=== PATIENT | female | born 1960 | race Two or more races ===

== ENCOUNTER 2017-05-01 10:03 | Emergency (ER) | payer OTHER ==
[2017-05-01 10:18] VITALS: BP 101/67; PULSE 56; TEMP 97.4; BMI 38.7
--- NOTE | 2017-05-01 10:18 | PDOC ---
History of Present Illness - General History Source: Patient Exam Limitations: No Limitations - History of Present Illness Initial Comments: 05/01/17 10:38 The patient is a 57-year-old female with a significant past medical history of diabetes, HTN, and HLD, who presents to the emergency department with dizziness and headache since 8:30am today. She states her headache is located at the frontal region. She also reports of near syncope and fall after the dizziness started. She denies any head trauma or LOC. As per brother, the patient took one sublingual nitro after her headache started. She reports associated nausea and one episode of non-bloody vomiting. She denies any sick contacts. She states she recently traveled back from [place] 2 days ago. The patient denies chest pain or shortness of breath. The patient denies fever, chills, diarrhea and constipation. The patient denies dysuria, frequency, urgency and hematuria. Allergies: NKDA Past Surgical History: None reported Social History: No toxic habits reported PCP: Dr. Rohit Borrego <Ade Callahan - Last Filed: 05/01/17 10:38> <Ara Titus - Last Filed: 05/01/17 13:43> - General Chief Complaint: Headache Stated Complaint: DIZZINESS Time Seen by Provider: 05/01/17 10:18 Past History <Ade Callahan - Last Filed: 05/01/17 10:38> - Suicide/Smoking/Psychosocial Hx Smoking History: Never smoked Information on smoking cessation initiated: No Hx Alcohol Use: No Drug/Substance Use Hx: No <Ara Titus - Last Filed: 05/01/17 13:43> - Past Medical History Allergies/Adverse Reactions: Allergies Allergy/AdvReac Type Severity Reaction Status Date / Time No Known Allergies Allergy Verified 05/01/17 10:30 Home Medications: Ambulatory Orders Atorvastatin Ca [Lipitor] 10 mg PO HS 05/01/17 Bystolic 5 mg PO DAILY 05/01/17 Enalapril Maleate 2.5 mg PO DAILY 05/01/17 Ergocalciferol (Vitamin D2) [Vitamin D2] 50,000 unit PO WEEKLY 05/01/17 Furosemide 20 mg PO DAILY 05/01/17 Hydroxyzine HCl 10 mg PO TID 05/01/17 Meclizine HCl [Antivert -] 25 mg PO QID PRN #28 tablet 05/01/17 Metformin HCl [Glucophage] 1,000 mg PO BID 05/01/17 Omeprazole 40 mg PO BID 05/01/17 Review of Systems - Review of Systems Able to Perform ROS?: Yes Comments:: 05/01/17 10:39 GENERAL/CONSTITUTIONAL: No fever or chills. No weakness. HEAD, EYES, EARS, NOSE AND THROAT: No change in vision. No ear pain or discharge. No sore throat. CARDIOVASCULAR: No chest pain or shortness of breath. RESPIRATORY: No cough, wheezing, or hemoptysis. GASTROINTESTINAL: (+) Nausea. (+) Vomiting. No diarrhea or constipation. GENITOURINARY: No dysuria, frequency, or change in urination. MUSCULOSKELETAL: No joint or muscle swelling or pain. No neck or back pain. SKIN: No rash NEUROLOGIC: (+) Headache. (+) Dizziness. No vertigo, loss of consciousness, or change in strength/sensation. ENDOCRINE: No increased thirst. No abnormal weight change. HEMATOLOGIC/LYMPHATIC: No anemia, easy bleeding, or history of blood clots. ALLERGIC/IMMUNOLOGIC: No hives or skin allergy. <Ade Callahan - Last Filed: 05/01/17 10:38> *Physical Exam - Vital Signs Last Vital Signs Temp Pulse Resp BP Pulse Ox 97.4 F L 56 L 16 101/67 100 05/01/17 10:14 05/01/17 10:14 05/01/17 10:14 05/01/17 10:14 05/01/17 10:14 - Physical Exam Comments: 05/01/17 10:39 GENERAL: Awake, alert, and fully oriented, in no acute distress HEAD: No signs of trauma EYES: PERRLA, EOMI, sclera anicteric, conjunctiva clear ENT: Auricles normal inspection, hearing grossly normal, nares patent, oropharynx clear without exudates. Moist mucosa NECK: Normal ROM, supple, no lymphadenopathy, JVD, or masses LUNGS: Breath sounds equal, clear to auscultation bilaterally. No wheezes, and no crackles HEART: Regular rate and rhythm, normal S1 and S2, no murmurs, rubs or gallops ABDOMEN: Soft, nontender, normoactive bowel sounds. No guarding, no rebound. No masses EXTREMITIES: Normal range of motion, no edema. No clubbing or cyanosis. No cords, erythema, or tenderness NEUROLOGICAL: Cranial nerves II through XII grossly intact. 5/5 strength of bilateral UE and LE. Normal speech. SKIN: Warm, Dry, normal turgor, no rashes or lesions noted. <Ade Callahan - Last Filed: 05/01/17 10:38> - Vital Signs Last Vital Signs Temp Pulse Resp BP Pulse Ox 97.4 F L 56 L 16 101/67 100 05/01/17 10:14 05/01/17 10:14 05/01/17 10:14 05/01/17 10:14 05/01/17 10:14 <Ara Titus - Last Filed: 05/01/17 13:43> ED Treatment Course - Medications Given in the ED: ED Medications Discontinued Medications Generic Name Dose Route Start Last Admin Trade Name Graemeq PRN Reason Stop Dose Admin Acetaminophen 1,000 mg 05/01/17 10:27 05/01/17 10:33 Ofirmev Injection - IVPB 05/01/17 10:28 1,000 mg ONCE ONE Administration Meclizine HCl 25 mg 05/01/17 10:28 05/01/17 10:34 Antivert - PO 05/01/17 10:29 25 mg ONCE ONE Administration <Ade Callahan - Last Filed: 05/01/17 10:38> - LABORATORY CBC & Chemistry Diagram: 05/01/17 10:30 05/01/17 10:30 <Ara Titus - Last Filed: 05/01/17 13:43> Medical Decision Making - Medical Decision Making 05/01/17 13:25 Pt presents to the ED with an episode of vertigo that occurred when moving from sitting to standing. Patient became acutely vertiginous, then fell without LOC. Her then gave her a nitroglycerin. Had headache that began after taking her 's nitroglycerin pill and now is resolved. CT head performed to check for intracranial pathology and is negative. Vertigo greatly improved with meclizine. Labs are within normal limits. Will discharge home with follow up with her PMD, Dr. Rohit Willams. 05/01/17 13:42 <Ara Titus - Last Filed: 05/01/17 13:43> *DC/Admit/Observation/Transfer - Attestations Scribe Attestion: 05/01/17 10:39 Documentation prepared by Ade Callahan, acting as biomedical service engineer for Ara Titus MD, MD/DO. <Ade Callahan - Last Filed: 05/01/17 10:38> - Discharge Dispostion Admit: No <Ara Titus - Last Filed: 05/01/17 13:43> Diagnosis at time of Disposition: Vertigo - Discharge Dispostion Disposition: HOME Condition at time of disposition: Good - Prescriptions Prescriptions: Meclizine HCl [Antivert -] 25 mg PO QID PRN #28 tablet PRN Reason: Vertigo - Referrals Referrals: Rohit Borrego MD [Primary Care Provider] - - Patient Instructions Printed Discharge Instructions: DI for Vertigo Additional Instructions: Return to the ED for worsening dizziness, difficultly walking, severe headache, passing out, chest pain or shortness of breath, other new or worsening symptoms. Follow up with Dr. Willams this week.
[2017-05-01] MEDS ORDERED: ACETAMINOPHEN 1000 MG/100 ML VIAL (NON FORMULARY) IVPB ONE (10:27)
[2017-05-01] MEDS ORDERED: MECLIZINE HCL 25 MG TABLET (FP) PO ONE (10:28)
[2017-05-01 10:58] LABS: HEMATOCRIT 36.6 % (32.4-45.2); HEMOGLOBIN 11.9 GM/dL (10.7-15.3); LYMPH % 29.2 % (8-40); MCH 29.3 pg (25.7-33.7); MCHC 32.5 g/dl (32.0-36.0); MEAN CELL VOLUME 90.4 fl (80-96); MEAN PLT VOLUME 7.5 fl (7.5-11.1); MONO % 5.4 % (3.8-10.2); NEUT % 61.4 % (42.8-82.8); PLATELET COUNT 274 K/MM3 (134-434); RBC 4.05 M/mm3 (3.60-5.2); RDW 14.1 % (11.6-15.6); WHITE BLOOD COUNT 8.7 K/mm3 (4.0-10.0)
[2017-05-01 11:39] LABS: ALBUMIN 3.4 g/dl (3.4-5.0); ANION GAP 7 (8-16); BILIRUBIN,TOTAL 0.5 mg/dL (0.2-1.0); BLOOD UREA NITROGEN 16 mg/dL (7-18); CALCIUM 8.6 mg/dL (8.5-10.1); CHLORIDE 100 mmol/L (98-107); CO2 28 mmol/L (21-32); CREATININE 0.8 mg/dL (0.55-1.02); GLUCOSE,RANDOM 131 mg/dL (74-106); POTASSIUM 4.1 mmol/L (3.5-5.1); SGOT/AST 17 U/L (15-37); SGPT/ALT 26 U/L (12-78); SODIUM 135 mmol/L (136-145); TOT PROT 7.7 g/dl (6.4-8.2)
[2017-05-01 11:42] LABS: ALK PHOS 60 U/L (45-117)
--- NOTE | 2017-05-03 13:23 | EKG ---
Test Reason : Blood Pressure : / mmHG Vent. Rate : 053 BPM Atrial Rate : 053 BPM P-R Int : 126 ms QRS Dur : 078 ms QT Int : 464 ms P-R-T Axes : 017 007 016 degrees QTc Int : 435 ms POOR DATA QUALITY, INTERPRETATION MAY BE ADVERSELY AFFECTED SINUS BRADYCARDIA MINIMAL VOLTAGE CRITERIA FOR LVH, MAY BE NORMAL VARIANT BORDERLINE ECG WHEN COMPARED WITH ECG OF 16-JUN-2005 09:04, T WAVE INVERSION NOW EVIDENT IN ANTERIOR LEADS Confirmed by ALEXA BURCIAGA MD ([id number]) on 05/03/2017 1:22:52 PM Referred By: Confirmed By:ALEXA BURCIAGA MD
== END 2017-05-01 14:01 | disposition home or self-care (01) ==
LOC: JER 10:03
PROC: 3E033NZ Introduction of Analgesics, Hypnotics, Sedatives into Peripheral Vein, Percutaneous Approach (ICD-10-PCS; principal; 2017-05-01)
DX: R42 Dizziness and giddiness (principal); I10 Essential (primary) hypertension; E11.9 Type 2 diabetes mellitus without complications; Z79.84 Long term (current) use of oral hypoglycemic drugs; E78.00 Pure hypercholesterolemia, unspecified
CPT/HCPCS: 36415; 70450-TC; 71045-TC; 80053; 82550; 82553; 84484; 85025; 93005; 93010; 96374; 99282-25

== ENCOUNTER 2018-05-15 06:55 | Inpatient (IN) | payer OTHER ==
[2018-05-14 17:13] VITALS: BMI 43.2
[2018-05-15] MEDS ORDERED: fentaNYL CITRATE 250 MCG/5 ML VIAL ONE (07:10)
[2018-05-15] MEDS ORDERED: PROPOFOL 20 ML ONE (07:11)
[2018-05-15] MEDS ORDERED: DEXAMETHASONE SOD PHOSPHATE 4 MG/1 ML VIAL ONE (07:11)
[2018-05-15] MEDS ORDERED: ROCURONIUM BROMIDE 50 MG/5 ML VIAL ONE (07:11)
[2018-05-15] MEDS ORDERED: LIDOCAINE HCL/PF 2% SDV 5ML VIAL ONE (07:11)
[2018-05-15] MEDS ORDERED: PNEUMOC 13-VAL CONJ-DIP CRM/PF 0.5 ML DISP.SYRIN IM ONE (07:44)
[2018-05-15] MEDS ORDERED: MIDAZOLAM HCL 2 MG/2 ML SINGLE DOSE VIAL ONE ×2 (09:07)
--- NOTE | 2018-05-15 09:24 | HP ---
Admitting History and Physical - Admission Chief Complaint: Morbid obesity History Source: Patient Limitations to Obtaining History: No Limitations - Past Medical History Cardiovascular: Yes: HTN, Hyperlipdemia Endocrine: Yes: Diabetes Mellitus - Past Surgical History Past Surgical History: Yes: Appendectomy - Smoking History Smoking history: Never smoked - Alcohol/Substance Use Hx Alcohol Use: No Home Medications - Allergies Allergies/Adverse Reactions: Allergies Allergy/AdvReac Type Severity Reaction Status Date / Time amoxicillin [From Augmentin] Allergy "vomiting" Verified 05/15/18 07:23 ciprofloxacin Allergy "itchy" Verified 05/15/18 07:23 clavulanic acid Allergy "vomiting" Verified 05/15/18 07:23 [From Augmentin] pineapple Allergy "burning Verified 05/15/18 07:23 in stomach" - Home Medications Home Medications: Ambulatory Orders Atorvastatin Ca [Lipitor] 40 mg PO HS 05/01/17 Metformin HCl [Glucophage] 1,000 mg PO BID 05/01/17 RX: Furosemide 20 mg PO DAILY 05/01/17 RX: Omeprazole 40 mg PO BID 05/01/17 Fenofibrate Nanocrystallized [Fenofibrate] 160 mg PO DAILY 05/15/18 RX: Metoprolol Tartrate 25 mg PO DAILY 05/15/18 Family Disease History - Family Disease History Family History: Unremarkable Review of Systems - Review of Systems Constitutional: denies: Chills, Fever Neck: reports: No Symptoms Cardiovascular: reports: No Symptoms Gastrointestinal: reports: No Symptoms Neurological: reports: No Symptoms Pain Intensity: 0 Physical Examination Vital Signs: Vital Signs Temperature 97.4 F L 05/15/18 07:46 Pulse Rate 73 05/15/18 07:46 Respiratory Rate 20 05/15/18 07:46 Blood Pressure 123/74 05/15/18 07:46 O2 Sat by Pulse Oximetry (%) 97 05/15/18 07:46 Constitutional: Yes: Calm Neck: Yes: WNL Cardiovascular: Yes: WNL Respiratory: Yes: WNL Gastrointestinal: Yes: Soft, Abdomen, Obese Neurological: Yes: Alert, Oriented Problem List - Problems (1) Morbid obesity due to excess calories Code(s): E66.01 - MORBID (SEVERE) OBESITY DUE TO EXCESS CALORIES (2) BMI 40.0-44.9, adult Code(s): Z68.41 - BODY MASS INDEX (BMI) 40.0-44.9, ADULT (3) Diabetes mellitus type 2 in obese Code(s): E11.69 - TYPE 2 DIABETES MELLITUS WITH OTHER SPECIFIED COMPLICATION; E66.9 - OBESITY, UNSPECIFIED (4) Hypertension Code(s): I10 - ESSENTIAL (PRIMARY) HYPERTENSION Qualifiers: Hypertension type: unspecified Qualified Code(s): I10 - Essential (primary ) hypertension (5) Hyperlipidemia Code(s): E78.5 - HYPERLIPIDEMIA, UNSPECIFIED Qualifiers: Hyperlipidemia type: unspecified Qualified Code(s): E78.5 - Hyperlipidemia , unspecified Assessment/Plan Laparoscopic possible open vertical sleeve gastrectomy, possible liver biopsy, EGD
[2018-05-15] MEDS ORDERED: ceFAZolin SODIUM 1 GM VIAL ONE (09:51)
[2018-05-15] MEDS ORDERED: ceFAZolin SODIUM 1 GM VIAL IVPB ONE (09:51)
[2018-05-15] MEDS ORDERED: METOPROLOL TARTRATE 5 MG/5 ML VIAL ONE (11:23)
[2018-05-15] MEDS ORDERED: BUPIVACAINE HCL/PF 0.5% (5MG/ML) 10 ML VIAL IJ ONE ×2 (11:39→11:43)
[2018-05-15] MEDS ORDERED: NEOSTIGMINE METHYLSULFATE 0.5 MG/ML - 10 ML MDV ONE (11:41)
[2018-05-15] MEDS ORDERED: GLYCOPYRROLATE 0.2 MG/1 ML VIAL ONE (11:41)
[2018-05-15] MEDS ORDERED: HYDROmorphone HCL CARPU-JECT 2 MG/1 ML DISP.SYRIN IVPB PRN (12:11)
[2018-05-15] MEDS: METOCLOPRAMIDE HCL INJECTION 10 MG/2 ML VIAL IVPUSH SCH ×3 (12:30→23:24)
[2018-05-15] MEDS: ACETAMINOPHEN 1000 MG/100 ML VIAL (NON FORMULARY) IVPB SCH ×3 (12:45→20:46)
--- NOTE | 2018-05-15 12:48 | OP ---
Operative Note - Note: Operative Date: 05/15/18 Pre-Operative Diagnosis: Morbid obesity. BMI 43.3. Hypertension. Diabetes mellitus Operation: Laparoscopic lysis of adhesions. Laparoscopic vertical sleeve gastrectomy, wedge liver biopsy, EGD Post-Operative Diagnosis: Same as Pre-op (As well as hepatomegaly) Surgeon: Danny Flores Marketing Strategy Lead: Pasquale Cross Anesthesia: General Specimens Removed: Greater curvature of stomach. Liver biopsy Estimated Blood Loss (mls): 50 Drains & Tubes with Location: 36 Fr Bougie Operative Report Dictated: Yes
[2018-05-15] MEDS ORDERED: FAMOTIDINE 20 MG/50 ML IVPB 20 MG/50 ML MG IVPB ONE ×2 (12:49→13:43)
[2018-05-15] MEDS: SODIUM CHLORIDE 1,000 ML IV SCH (13:00)
[2018-05-15] MEDS: ONDANSETRON 4 MG/2 ML VIAL IVPUSH SCH ×3 (13:10→20:46)
[2018-05-15] MEDS ORDERED: ACETAMINOPHEN 325 MG TABLET (FP) PO PRN (13:17)
[2018-05-15 13:28] LABS: HEMATOCRIT 38.2 % (32.4-45.2); HEMOGLOBIN 12.6 GM/dL (10.7-15.3); MCH 29.7 pg (25.7-33.7); MCHC 32.9 g/dl (32.0-36.0); MEAN CELL VOLUME 90.2 fl (80-96); MEAN PLT VOLUME 7.9 fl (7.5-11.1); PLATELET COUNT 307 K/MM3 (134-434); RBC 4.23 M/mm3 (3.60-5.2); RDW 13.9 % (11.6-15.6); WHITE BLOOD COUNT 9.2 K/mm3 (4.0-10.0)
[2018-05-15] MEDS ORDERED: LACTATED RINGERS SOLUTION 1,000 ML IV SCH (13:30)
--- NOTE | 2018-05-15 13:41 | SURG ---
Surgery Paper Wrapping Machine Operator Note Paper Wrapping Machine Operator: Pasquale Cross PA-C (Suzy) Date of Service: 05/15/18 Diagnosis: Morbid obesity. BMI 43.3. Hypertension. Diabetes mellitus Procedure: Laparoscopic lysis of adhesions. Laparoscopic vertical sleeve gastrectomy, wedge liver biopsy, EGD I was present for the entirety of the operative procedure. For further detail, please refer to operative report.
--- NOTE | 2018-05-15 13:53 | SPEC ---
DATE OF OPERATION: 05/15/2018 SURGEON: Binh Flores MD AQUATIC PERFORMER: Paula Cross PREOPERATIVE DIAGNOSIS: 1. Morbid obesity. 2. Body mass index of 43.3. 3. Diabetes mellitus type 2. 4. Hypertension. 5. Hyperlipidemia. POSTOPERATIVE DIAGNOSIS: 1. Morbid obesity. 2. Body mass index of 43.3. 3. Diabetes mellitus type 2. 4. Hypertension. 5. Hyperlipidemia. 6. Hepatomegaly. PROCEDURE: 1. Diagnostic laparoscopy. 2. Laparoscopic lysis of adhesions. 3. Laparoscopic vertical sleeve gastrectomy. 4. Laparoscopic wedge liver biopsy. 5. Upper endoscopy/EGD. SPECIMEN: 1. Greater curvature of the stomach. 2. Liver biopsy. ESTIMATED BLOOD LOSS: 50 mL. DRAINS: None. ANESTHESIA: GET. REASON FOR PROCEDURE: This is a 58-year-old female who presented to the office for weight loss options. After describing different options, she decided to proceed with a laparoscopic, possible open vertical sleeve gastrectomy, possible liver biopsy and upper endoscopy. RISKS AND BENEFITS: After describing the different options for weight loss management, the patient decided to proceed with a laparoscopic, possible open vertical sleeve gastrectomy. The patient was seen by the respective subspecialties and cleared for surgery. The risks and benefits of the procedure were explained. These included bleeding, infection, hernia, RI, DVT, PE, injury to surrounding structures including the liver, colon, bowel, spleen, esophagus, vessel injury, nerve injury, weight regain, gastric leak, staple line leak, sleeve leak, obstruction, vitamin deficiency, hair loss and as some of the possible complications. The patient understood and signed informed consent. DESCRIPTION OF PROCEDURE: The patient was placed supine on the operating room table. The patient underwent general endotracheal intubation. The arms were brought out at 90 degrees and secured. A footboard was placed and the legs were secured laterally with padding. The abdomen was prepped and draped in the usual sterile fashion. A timeout was performed. An incision was made in the left upper quadrant and a Veress needle inserted. Pneumoperitoneum was established. Subsequently, the Veress needle was removed and a 5-mm trocar was placed under direct visualization with the laparoscope. The laparoscopic camera was then inserted and inspection of the abdominal cavity was performed. An incision was then made in the supraumbilical area and a 15-mm trocar was placed under direct visualization. A 5-mm trocar was then placed in the right upper quadrant and a 5-mm trocar was placed below the left subcostal margin. A stab wound was made in the subxiphoid area and a Velia clamp inserted and removed to dilate the tract. A Juli liver retractor was inserted. The post was secured at the bedside by the nursing staff. The patient was placed in steep reverse Trendelenburg position and the Juli liver retractor was used to secure the liver towards the anterior abdominal wall. The pylorus was identified and 6 cm proximal to it, the lesser sac was entered using the LigaSure device. All lateral attachments to the greater curvature of the stomach, including the short gastric vessels, were ligated using the LigaSure device toward the gastrosplenic and gastrophrenic ligaments. Once this was done in its entirety, it was confirmed that all tubes within the nasal or oropharyngeal cavity, including a temperature probe, was removed by Anesthesia. The bougie was then inserted by Anesthesia. Transection of the stomach was then begun staying adjacent to the bougie but away from the angularis. Transection of the stomach was performed near the portion of the stomach where the lesser sac was entered. Two laparoscopic Endo-NLEDA black yoly were used at this location. Laparoscopic Endo NELDA purple staple loads were then used for the remainder of the transection until the greater curvature of the stomach was fully transected. This was done staying close to the bougie. Care was taken to stay away from the angle of His cephalad. The staple line was then inspected. Hemostasis was identified. A leak test was then performed. It was clamped distally to the staple line. Irrigation solution was placed in the left upper quadrant and air was insufflated by Anesthesia into the sleeve. No leaks were identified. No obstruction was identified. This was done through the entirety of the staple line. In addition, an upper endoscopy was performed. The endoscope was placed into the patients mouth and the entirety of the esophagus, GE junction, gastric pouch and staple line were inspected. No obstruction or leak was noted. The stomach was suctioned and the endoscope removed fully intact. At this point, the irrigation solution was suctioned and again, hemostasis was noted. A wedge liver biopsy was then performed. The left lobe of the liver was identified and a portion of the edge was grasped. Using electrocautery, a wedge of the liver was excised. This was removed and sent off the field as specimen. Hemostasis at the site of the wedge liver biopsy was attained using electrocautery. The 15-mm supraumbilical trocar was then removed and the greater curvature specimen removed from the site using a sponge stick steward. The specimen was inspected and a Veress needle inserted. The specimen insufflated adequately and no leak was identified. The staple line was noted to be intact. A Segun-Kiki device was then used to close the fascia with a 0 Vicryl suture at the site. Again, hemostasis was noted. The Juli liver retractor was then removed under direct visualization. Pneumoperitoneum was desufflated and the fascial sutures were secured. Hemostasis was noted at all incision sites and Marcaine was injected at all incision sites. All incision sites were closed using 4-0 Biosyn. Sterile dressings were applied. The patient tolerated the procedure well and was transferred to the recovery room in stable condition. The patient was transferred to telemetry for further monitoring. At the beginning of the case because of a prior midline surgery in the past, an incision was made in the left subcostal region and a Veress needle placed taking visualization with the laparoscope. Dense adhesions were noted in the midline intraabdominally, which had to be carefully taken down with LigaSure device. After extensive lysis of adhesions, the remainder of the sleeve continued. BINH FLORES M.D. [id number] MTDD
[2018-05-15 14:05] LABS: ALBUMIN 3.8 g/dl (3.4-5.0); ALK PHOS 35 U/L (45-117); ANION GAP 8 MMOL/L (8-16); BILIRUBIN,TOTAL 0.3 mg/dL (0.2-1); BLOOD UREA NITROGEN 20 mg/dL (7-18); CALCIUM 8.9 mg/dL (8.5-10.1); CHLORIDE 102 mmol/L (98-107); CO2 27 mmol/L (21-32); CREATININE 1.2 mg/dL (0.55-1.3); GLUCOSE,RANDOM 171 mg/dL (74-106); POTASSIUM 4.3 mmol/L (3.5-5.1); SGOT/AST 58 U/L (15-37); SGPT/ALT 56 U/L (13-61); SODIUM 136 mmol/L (136-145); TOT PROT 8.1 g/dl (6.4-8.2)
[2018-05-15] MEDS: INSULIN SLIDING SCALE (NOVOLOG) 1 VIAL SQ SCH ×2 (16:48→17:06)
[2018-05-15] MEDS: HYDROmorphone HCl 2 MG/ML VIAL IVPB PRN (18:40)
[2018-05-15] MEDS: FAMOTIDINE 20 MG/50 ML IVPB 20 MG/50 ML MG IVPB SCH (21:52)
[2018-05-16] MEDS: ONDANSETRON 4 MG/2 ML VIAL IVPUSH SCH ×6 (01:06→21:04)
[2018-05-16] MEDS: ACETAMINOPHEN 1000 MG/100 ML VIAL (NON FORMULARY) IVPB SCH (03:49)
[2018-05-16 06:43] LABS: HEMATOCRIT 32.1 % (32.4-45.2); HEMOGLOBIN 10.8 GM/dL (10.7-15.3); MCH 30.5 pg (25.7-33.7); MCHC 33.7 g/dl (32.0-36.0); MEAN CELL VOLUME 90.3 fl (80-96); MEAN PLT VOLUME 7.7 fl (7.5-11.1); PLATELET COUNT 273 K/MM3 (134-434); RBC 3.56 M/mm3 (3.60-5.2); WHITE BLOOD COUNT 8.6 K/mm3 (4.0-10.0)
[2018-05-16] MEDS: INSULIN SLIDING SCALE (NOVOLOG) 1 VIAL SQ SCH ×3 (06:43→16:20)
[2018-05-16] MEDS: METOCLOPRAMIDE HCL INJECTION 10 MG/2 ML VIAL IVPUSH SCH ×3 (06:43→18:06)
[2018-05-16 07:05] LABS: ALK PHOS 29 U/L (45-117); ANION GAP 6 MMOL/L (8-16); BILIRUBIN,TOTAL 0.5 mg/dL (0.2-1); BLOOD UREA NITROGEN 15 mg/dL (7-18); CALCIUM 7.8 mg/dL (8.5-10.1); CHLORIDE 105 mmol/L (98-107); CO2 27 mmol/L (21-32); CREATININE 0.8 mg/dL (0.55-1.3); GLUCOSE,RANDOM 131 mg/dL (74-106); POTASSIUM 3.8 mmol/L (3.5-5.1); SGOT/AST 46 U/L (15-37); SGPT/ALT 51 U/L (13-61); SODIUM 138 mmol/L (136-145); TOT PROT 6.6 g/dl (6.4-8.2)
--- NOTE | 2018-05-16 07:52 | PN ---
Addendum entered and electronically signed by Igor Cohen PA 05/16/18 14:34: UGI: no leak, extravastion or gastric outlet obstruction. BST1 diet ordered dc home if tolerated. Original Note: Progress Note (short form) - Note Progress Note: POD #1 Alert. Recovering nicely from surgery. States she is getting OOB and ambulating with walker in the hallways. Voiding spontaneously. Adequate pain management with medications ordered. Denies n/v/f/c, CO, SOB, AGUILAR or palpitations. Last Vital Signs Temp Pulse Resp BP Pulse Ox 98.0 F 82 16 118/68 96 05/16/18 05:00 05/16/18 05:00 05/16/18 05:00 05/16/18 05:00 05/15/18 21:00 CBC, BMP 05/16/18 06:00 05/16/18 06:00 Gen: nad ABD: obese habitus. All surgical ports c/d/i. No hematoma LE: SCDs bilat. Soft. Non-tender. No edema. <Igor Cohen P - Last Filed: 05/16/18 07:47> - Note Progress Note: Agree POD 1 Pain controlled AVSS Abd soft UGI: no leak/obstruction Discharge planning <Danny Flores - Last Filed: 05/16/18 18:59> Problem List - Problems (1) Morbid obesity due to excess calories Assessment/Plan: POD #1 s/p Laparoscopic lysis of adhesions. Vertical sleeve gastrectomy, wedge liver biopsy, EGD 1. f/u UGI 2. if negative study start Bariatric Stage 1 diet orderset 3. Cont OOB and ambulate 4. Pain management 5. DC planning possible today Code(s): E66.01 - MORBID (SEVERE) OBESITY DUE TO EXCESS CALORIES (2) Diabetes mellitus type 2 in obese Code(s): E11.69 - TYPE 2 DIABETES MELLITUS WITH OTHER SPECIFIED COMPLICATION; E66.9 - OBESITY, UNSPECIFIED (3) Hypertension Code(s): I10 - ESSENTIAL (PRIMARY) HYPERTENSION Qualifiers: Hypertension type: unspecified Qualified Code(s): I10 - Essential (primary ) hypertension <Igor Cohen - Last Filed: 05/16/18 07:47> - Problems (1) Morbid obesity due to excess calories Code(s): E66.01 - MORBID (SEVERE) OBESITY DUE TO EXCESS CALORIES (2) BMI 40.0-44.9, adult Code(s): Z68.41 - BODY MASS INDEX (BMI) 40.0-44.9, ADULT (3) Diabetes mellitus type 2 in obese Code(s): E11.69 - TYPE 2 DIABETES MELLITUS WITH OTHER SPECIFIED COMPLICATION; E66.9 - OBESITY, UNSPECIFIED (4) Hypertension Code(s): I10 - ESSENTIAL (PRIMARY) HYPERTENSION Qualifiers: Hypertension type: unspecified Qualified Code(s): I10 - Essential (primary ) hypertension (5) Hyperlipidemia Code(s): E78.5 - HYPERLIPIDEMIA, UNSPECIFIED Qualifiers: Hyperlipidemia type: unspecified Qualified Code(s): E78.5 - Hyperlipidemia , unspecified <Danny Flores - Last Filed: 05/16/18 18:59>
[2018-05-16] MEDS: HYDROmorphone HCl 2 MG/ML VIAL IVPB PRN ×2 (09:23→15:32)
[2018-05-16] MEDS: FAMOTIDINE 20 MG/50 ML IVPB 20 MG/50 ML MG IVPB SCH ×2 (09:25→21:04)
--- NOTE | 2018-05-16 09:52 | PN ---
Progress Note (short form) - Note Progress Note: Post op day#1.S/P Gastric sleeve placement under GA with bilateral TAP block uneventful.Patient stableand c/o some pain for which she is on medication.No any anesthesia related problem.Patient DC from the anesthesia care.
[2018-05-16] MEDS: SODIUM CHLORIDE 1,000 ML IV SCH (11:28)
[2018-05-16] MEDS ORDERED: oxyCODONE HCL 5 MG TABLET PO PRN (13:47)
[2018-05-16] MEDS ORDERED: SODIUM CHLORIDE 1,000 ML IV SCH (14:00)
[2018-05-16] MEDS ORDERED: PNEUMOCOCCAL 23 VACCINE 0.5 ML VIAL IM ONE (14:00)
[2018-05-16] MEDS: ENOXAPARIN NA (PORCINE) 40 MG/0.4 ML DISP.SYRIN SQ SCH ×2 (14:24→21:04)
--- NOTE | 2018-05-16 19:00 | PATH ---
Surgical Pathology Report Patient Name: EHSAN MENDIOLA [facility]. Rec. #: [id number] /Age/Gender: 1960 (Age: 58) / F Account: [id number] Location: 4 SO PEDS/ADOL Taken: 05/15/2018 Received: 05/15/2018 Reported: 05/16/2018 Physicians: Danny Flores M.D. Specimen(s) Received A: LIVER BIOPSY B: GREATER CURVATURE STOMACH Clinical History Morbid obesity Final Diagnosis A. LIVER, BIOPSY: STEATOHEPATITIS, MILD; SEVERE STEATOSIS (~75%). MILD PERIVENULAR, MILD PERISINUSOIDAL, PORTAL AND FOCAL PERIPORTAL FIBROSIS (STAGE I OF 4). SEE COMMENT. B. STOMACH, GREATER CURVATURE, LAPAROSCOPIC VERTICAL SLEEVE GASTRECTOMY: PORTION OF STOMACH WITH MODERATE CHRONIC GASTRITIS. IMMUNOHISTOCHEMICAL STAIN FOR H. PYLORI IS NEGATIVE. Comment: The liver parenchyma demonstrates severe mixed macro and macrovesicular steatosis (~75%). Focal lymphocytic infiltrate is seen in portal tracts. No significant interface activity is present. No plasmacytosis is present. No significant bile injury is seen. No granulomas are present. Focal hepatocyte ballooning is noted. No definitive Angela hyaline is identified. The trichrome stain highlights mild perivenular, mild perisinusoidal, portal and focal mild periportal fibrosis. No increase in Iron noted by Iron special stain. Overall, findings show mild steatohepatitis and severe steatosis; stage 1 of 4 (Brunt). Etiologies include alcohol and alcoholic liver injury including metabolic conditions, drug or toxin injury. Suggest clinical and serologic correlation. Electronically Signed Deepthi Daly M.D. Gross Description A. Received in formalin labeled "liver biopsy," is a 3.0 x 1.5 x 0.6 cm rousseau, irregular portion of soft tissue, consistent with a liver biopsy. Mail Censor sections are submitted in one cassette. B. Received in formalin, labeled "greater curvature of stomach," is a 155 gram, 18.5 x 3.5 x 3.3 cm. portion of stomach with a stapled margin of resection. The serosa is rousseau-montanez with minimal attached fat. The mucosa is rousseau-pink with normal folds. No mucosal masses are identified. Mail Censor sections are submitted in one cassette. /05/15/2018 saudi05/15/2018
[2018-05-16] MEDS ORDERED: ATORVASTATIN CA 40 MG TABLET (FP) PO SCH (22:00)
[2018-05-17] MEDS: ONDANSETRON 4 MG/2 ML VIAL IVPUSH SCH ×3 (00:15→09:01)
[2018-05-17] MEDS: METOCLOPRAMIDE HCL INJECTION 10 MG/2 ML VIAL IVPUSH SCH ×2 (05:39)
[2018-05-17] MEDS: INSULIN SLIDING SCALE (NOVOLOG) 1 VIAL SQ SCH (06:10)
[2018-05-17 08:34] VITALS: BP 120/68; PULSE 86; TEMP 99.5
[2018-05-17] MEDS ORDERED: PT OWN MED DRAWER 7, Y5N ONE (08:56)
[2018-05-17] MEDS: ENOXAPARIN NA (PORCINE) 40 MG/0.4 ML DISP.SYRIN SQ SCH (09:02)
[2018-05-17] MEDS: FAMOTIDINE 20 MG/50 ML IVPB 20 MG/50 ML MG IVPB SCH (09:02)
[2018-05-17] MEDS ORDERED: FENOFIBRIC ACID 135 MG CAP PO SCH (10:00)
[2018-05-17] MEDS ORDERED: FUROSEMIDE 20 MG TABLET (FP) PO SCH (10:00)
[2018-05-17] MEDS ORDERED: METOPROLOL TARTRATE 25 MG TABLET (FP) PO SCH (10:00)
[2018-05-17] MEDS ORDERED: FENOFIBRATE NANOCRYSTALLIZED PO SCH (10:00)
--- NOTE | 2018-05-17 10:19 | PN ---
Progress Note (short form) - Note Progress Note: POD#2 Pt without complaints this am. No CP or SOB. Tolerating a diet. Family at bedside today. Vital Signs Period Temp Pulse Resp BP Sys/Hebert Pulse Ox Last 24 Hr 98.5 F-100 F 83-92 16-18 112-133/61-78 95-98 GEN: A&0x3 CV: RRR Lungs: CTA b/l ABD: soft, non-distended, incisional-tender. Dressing c/d/i. LE: no calf tenderness or swelling noted b/l. CBC, BMP 01/16/19 06:00 01/16/19 06:00 A/p: s/p lap vertical sleeve gastrectomy, POD#2 Plan for discharge today Continue diet as tolerated Follow up with Dr. Flores as outpatient
== END 2018-05-17 10:47 | disposition home or self-care (01) | DRG 403 ==
LOC: JSAMEDAYSX 06:55 → J4S 16:19
PROVIDERS: ADMIT Surgery; ATTEND Surgery
PROC: 0DJ08ZZ Inspection of Upper Intestinal Tract, Via Natural or Artificial Opening Endoscopic (ICD-10-PCS; 2018-05-15)
PROC: 0DB64Z3 Excision of Stomach, Percutaneous Endoscopic Approach, Vertical (ICD-10-PCS; principal; 2018-05-15 08:30)
PROC: 0DNW4ZZ Release Peritoneum, Percutaneous Endoscopic Approach (ICD-10-PCS; 2018-05-15 08:30)
PROC: 0FB24ZX Excision of Left Lobe Liver, Percutaneous Endoscopic Approach, Diagnostic (ICD-10-PCS; 2018-05-15 08:30)
DX: E66.01 Morbid (severe) obesity due to excess calories (principal); R16.0 Hepatomegaly, not elsewhere classified; Z68.41 Body mass index [BMI] 40.0-44.9, adult; I10 Essential (primary) hypertension; E78.5 Hyperlipidemia, unspecified; Z79.84 Long term (current) use of oral hypoglycemic drugs; E11.9 Type 2 diabetes mellitus without complications; K66.0 Peritoneal adhesions (postprocedural) (postinfection)
CPT/HCPCS: 36415; 74241-TC-FY; 80053; 82962; 85027; 86850; 86900; 86901; 88307-TC; 90732; 94010; 94760; G0009; J0131; J7030